=== PATIENT | female | born 2000 | race African-American/Black ===

== ENCOUNTER 2022-06-03 09:32 | Emergency (ER) | payer OTHER ==
[2022-06-03] MEDS ORDERED: Ibuprofen 200 MG TAB ONE (10:20)
[2022-06-03] MEDS ORDERED: Acetaminophen 500 MG TAB ONE (10:21)
[2022-06-03] MEDS ORDERED: Acetaminophen 325 MG TAB ONE (10:22)
== END 2022-06-03 10:29 | disposition home or self-care (01) ==
LOC: NAV ERS 09:32
DX: K04.4 Acute apical periodontitis of pulpal origin (principal)
CPT/HCPCS: 99282